=== PATIENT | male | born 1945 | race Caucasian/White ===

== ENCOUNTER 2022-07-20 17:04 | Emergency (ER) | payer OTHER ==
[~2022-07-20] VITALS: Ht 170.2 cm; Wt 80.7 kg
[2022-07-20] MEDS ORDERED: METFORMIN HCL500 MG PO (17:20)
[2022-07-20] MEDS ORDERED: ARICEPT10 MG PO (17:21)
[2022-07-20] MEDS ORDERED: DULOXETINE HCL40 MG PO (17:21)
[2022-07-20] MEDS ORDERED: PANTOPRAZOLE SO40 MG PO (17:22)
[2022-07-20] MEDS ORDERED: ATORVASTATIN CA40 MG PO (17:22)
== END 2022-07-20 22:08 | disposition home or self-care (01) ==
LOC: ER 17:04
DX: N39.0 Urinary tract infection, site not specified (principal); E11.9 Type 2 diabetes mellitus without complications